=== PATIENT | female | born 1950 | race Asian ===

== ENCOUNTER 2020-09-24 09:25 | Emergency (ER) | payer MEDICARE, OTHER ==
[~2020-09-24] VITALS: Ht 152.4 cm; Wt 63.5 kg
[~2020-09-24 09:25] MED LIST: ASPI81CH PO; ATEN50; DONE5; Estradiol0.5 MG PO; Lisinopril2.5 MG; METO25ER PO; Omeprazole20 M1 PO; Prozac20 MG PO; SIMV40 PO
[2020-09-24 09:57] LABS: Source, Urine Voided
[2020-09-24] MEDS ORDERED: DULOXETINE HCL60 M1 PO (09:59)
[2020-09-24] MEDS ORDERED: LANS30EC PO (10:00)
[2020-09-24] MEDS ORDERED: ATOR40TA PO (10:00)
[2020-09-24 10:08] LABS: Appearance, Urine Hazy (Clear); Blood, Urine 5+ (Neg); Color, Urine Amber (P-Yellow); Glucose Qualitative, Urine Neg (Neg); Ketones, Urine 1+ (Neg); Leukocyte Esterase, Urine 2+ (Neg); Nitrite, Urine Pos (Neg); Protein, Urine 3+ (Neg); Specific Gravity, Urine 1.025 (1.003-1.022); Urobilinogen, Urine 2+ (Normal)
[2020-09-24 10:31] LABS: Bilirubin, Urine 1+ (Neg)
[2020-09-24 10:32] LABS: Red Blood Cells, Urine TNTC /hpf (0-2); Squamous Epithelial Cells Mod /hpf (Few)
[2020-09-24 10:33] LABS: Bacteria Many /hpf; Mucus Mod (0-Heavy)
[2020-09-24] MEDS ORDERED: CEPH500 PO (10:53)
== END 2020-09-24 11:05 | disposition home or self-care (01) ==
LOC: ER 09:25
PROVIDERS: Emergency Medicine
DX: N39.0 Urinary tract infection, site not specified (principal); Z79.82 Long term (current) use of aspirin; Z79.899 Other long term (current) drug therapy
CPT/HCPCS: 81001; 87086; 99283; A9270

== ENCOUNTER → 2021-01-30 | Outpatient (CLI) | payer MEDICARE, OTHER ==
[~2021-01-30] MED LIST changes: +ATOR40TA PO; +CEPH500 PO; +DULOXETINE HCL60 M1 PO; +LANS30EC PO
== END | disposition home or self-care (01) ==
LOC: LAB SHORT 09:00 → LAB 09:00
DX: E03.9 Hypothyroidism, unspecified (principal)
CPT/HCPCS: 84443

== ENCOUNTER 2021-11-09 12:02 | Day surgery (SDC) | payer MEDICARE, OTHER ==
[~2021-11-09] VITALS: Ht 149.9 cm; Wt 65.4 kg
== END 2021-11-09 13:55 | disposition home or self-care (01) ==
LOC: ORSCSDS 12:02
PROVIDERS: Internal Medicine Gastroenterology
PROC: 0DB58ZX Excision of Esophagus, Via Natural or Artificial Opening Endoscopic, Diagnostic (ICD-10-PCS; principal; 2021-11-09 15:30)
PROC: 0DB68ZX Excision of Stomach, Via Natural or Artificial Opening Endoscopic, Diagnostic (ICD-10-PCS; principal; 2021-11-09 15:30)
DX: R10.13 Epigastric pain (principal); K29.60 Other gastritis without bleeding; K20.90 Esophagitis, unspecified without bleeding; K80.20 Calculus of gallbladder without cholecystitis without obstruction; R73.9 Hyperglycemia, unspecified; Z79.899 Other long term (current) drug therapy; G30.8 Other Alzheimer's disease
CPT/HCPCS: 82947; 88305; 88342; J0330; J0461; J2405; J2704

== ENCOUNTER 2021-11-11 11:34 | Inpatient (IN) | payer MEDICARE, OTHER ==
[~2021-11-11] VITALS: Ht 149.9 cm; Wt 63.1 kg
[2021-11-11 12:31] LABS: BASOPHILS ABSOLUTE AUTO 0.06 K/mm3 (0.00-0.23); BASOPHILS PERCENT AUTO 0 % (0-2); EOSINOPHILS ABSOLUTE AUTO 0.03 K/mm3 (0.00-0.68); EOSINOPHILS PERCENT AUTO 0 % (0-6); Hematocrit 30.8 % (33.0-51.0); Hemoglobin 9.8 g/dL (11.5-16.0); IMMATURE GRAN ABSOLUTE AUTO 0.14 K/mm3 (0.00-0.10); IMMATURE GRAN PERCENT AUTO 1 % (0-1); LYMPHOCYTES ABSOLUTE AUTO 2.79 K/mm3 (0.84-5.20); LYMPHOCYTES PERCENT AUTO 15 % (21-46); MONOCYTES ABSOLUTE AUTO 0.81 K/mm3 (0.16-1.47); MONOCYTES PERCENT AUTO 4 % (4-13); Mean Corpuscular HGB 29.8 pg (26.0-34.0); Mean Corpuscular HGB Conc 31.8 g/dL (31.5-36.5); Mean Corpuscular Volume 94 fL (80-100); Mean Platelet Volume 11.4 fL (9.1-12.4); NEUTROPHILS ABSOLUTE AUTO 15.08 K/mm3 (1.96-9.15); NEUTROPHILS PERCENT AUTO 80 % (41-73); Platelet Count 262 K/mm3 (150-400); RDW Coefficient Variation 13.2 % (11.7-14.2); RDW Standard Deviation 45.1 fL (35.1-46.3); Red Blood Cell Count 3.29 M/mm3 (3.80-5.20); White Blood Cell Count 18.91 K/mm3 (4.00-11.30)
[2021-11-11 12:45] LABS: Albumin, Blood 3.2 g/dL (3.4-5.0); Albumin/Globulin Ratio 0.9 (0.8-1.8); Bilirubin, Total 0.3 mg/dL (0.1-1.0); Creatinine, Blood 0.53 mg/dL (0.40-1.00); Globulin, Blood 3.5 g/dL (2.2-4.0); Potassium, Blood 4.1 mmol/L (3.5-5.5); Total Protein, Blood 6.7 g/dL (6.4-8.2)
--- NOTE | 2021-11-11 16:26 | NUR ---
11/11/21 1626 Anne Marie Ash History, Chart, Medications and Allergies reviewed before start of procedure. See Anesthesia record FOR DETAILS. Bite Block Placed PRIOR TO START OF PROCEDURE. MONITOR INTACT WITH CONTINUOUS PULSE OXIMETRY AND INTERMITTENT BP. O2 VIA POM AT 15L INTACT THROUGHOUT SEDATION/PROCEDURE.
--- NOTE | 2021-11-11 16:50 | NUR ---
RECEIVED PATIENT REPORT FROM ED RN, PT CURRENTLY IN DAY SURGERY
--- NOTE | 2021-11-11 16:50 | NUR ---
RECEIVED REPORT FROM DAY SURGERY ABOUT PT'S CONDITION. PT ON THEIR WAY TO PCU 19
--- NOTE | 2021-11-11 16:55 | NUR ---
PT TO BATHROOM, SBA. DR SOLIS HERE TO SPEAK WITH PT. PT TO BE ADMITTED TO [facility].
--- NOTE | 2021-11-11 19:32 | NUR ---
SHIFT SUMMARY PT WAS ADMITTED TO PCU LATE INTO MY SHIFT, SO MY TIME WITH THE PT HAS BEEN LIMITED. PT IS A/0x3 AND IS COOPERATIVE WITH STAFF. PT'S HR HAS BEEN TACHY AND BP'S STABLE IN THE 130-150'S. PT MAINTAINS SPO2 >95 IN RA WITH NO SOB OR DYSPNEA NOTED. LS CLEAR. NO OVERT CHANGE IN MENTAL STATUS NOTED T/O MY SHIFT. PT ABLE TO TRANSFER TO [facility] WITH S[facility]. NO N/V/D T/O MY SHIFT. PT'S SPOUSE WILL BRING IN MED REC TO PCU 11/12/21. NO TARRY BM'S OR COFFEE GROUND EMESIS T/O MY SHIFT. VALENCIA, VSS
[2021-11-12 06:22] LABS: BASOPHILS ABSOLUTE AUTO 0.03 K/mm3 (0.00-0.23); BASOPHILS PERCENT AUTO 0 % (0-2); EOSINOPHILS ABSOLUTE AUTO 0.03 K/mm3 (0.00-0.68); EOSINOPHILS PERCENT AUTO 0 % (0-6); Hematocrit 21.5 % (33.0-51.0); Hemoglobin 7.2 g/dL (11.5-16.0); IMMATURE GRAN ABSOLUTE AUTO 0.04 K/mm3 (0.00-0.10); IMMATURE GRAN PERCENT AUTO 0 % (0-1); LYMPHOCYTES ABSOLUTE AUTO 3.19 K/mm3 (0.84-5.20); LYMPHOCYTES PERCENT AUTO 25 % (21-46); MONOCYTES ABSOLUTE AUTO 0.63 K/mm3 (0.16-1.47); MONOCYTES PERCENT AUTO 5 % (4-13); Mean Corpuscular HGB 30.3 pg (26.0-34.0); Mean Corpuscular HGB Conc 33.5 g/dL (31.5-36.5); Mean Corpuscular Volume 90 fL (80-100); Mean Platelet Volume 10.9 fL (9.1-12.4); NEUTROPHILS ABSOLUTE AUTO 8.89 K/mm3 (1.96-9.15); NEUTROPHILS PERCENT AUTO 70 % (41-73); Platelet Count 188 K/mm3 (150-400); RDW Coefficient Variation 13.3 % (11.7-14.2); RDW Standard Deviation 43.3 fL (35.1-46.3); Red Blood Cell Count 2.38 M/mm3 (3.80-5.20); White Blood Cell Count 12.81 K/mm3 (4.00-11.30)
--- NOTE | 2021-11-12 06:25 | NUR ---
SHIFT SUMMARY NO ACUTE CHANGES THIS SHIFT. PT ALERT, PLEASANT, FOLLOWS DIRECTIONS, THOUGH CAN BE OCCASIONALLY FORGETFUL. SP02>90% ON RA. TELEMTRY SHOWS SINUS TACH MOSTLY HR 100'S THOUGH ELEVATES TO 130'S WHEN AMBULATING. C/O OF EPIGASTRIC "MILD BURNING". UP TO BATHROOM TO VOID. NO BM BUT A LOT OF GAS. DENIES N/V. FLUIDS INFUSED PER EMAR. IMAGING IN ROOM THIS SHIFT TO GIVE ORAL CONTRACT FOR MORNING CT. PT STARTED DRINKING CONTRAST AT 0430, ADHEREING TO TIME INSTRUCTIONS ON BOTTLE. CALL LIGHT IN REACH.
[2021-11-12 06:30] LABS: Bun/Creatinine Ratio 34.5 (12.0-20.0); Calcium, Blood 8.2 mg/dL (8.5-10.1); Creatinine, Blood 0.58 mg/dL (0.40-1.00); Potassium, Blood 3.4 mmol/L (3.5-5.5)
--- NOTE | 2021-11-12 12:26 | NUR ---
PUREWWICK REMOVED PER PATIENT REQUEST AND NEW ATTENDS PLACED
[2021-11-12] MEDS ORDERED: EUTHYROX50 MCG PO ×2 (12:34→12:38)
[2021-11-12] MEDS ORDERED: METO25ER PO (12:39)
--- NOTE | 2021-11-12 17:13 | NUR ---
PT REPORTS SOME MILD EPIGASTRIC BURNING AT TIMES. PT REPORTS SEVERAL SMALL BLACK STOOLS. I HAVE BEEN UNABLE TO VISUALIZE PT HAS REMOVED HAT AND FLUSHED TOILET- FORGETS REQUEST TO SAVE STOOL. BED ALARM IN PLACE, PT FORGETFUL, DOES NOT USE CALL LIGHT AND ATTEMPTS TO TAKE SELF TO BR. PT REPEATEDLY TELLS ME SHE HAS DEMENTIA. PT DENIES DIZZINESS OR ANY HEADACHE OR HEAD PAIN. MELISSA FULL LIQUID WITHOUT NAUSEA. PT IS HOPING TO DISCHARGE IN AM
--- NOTE | 2021-11-13 06:01 | NUR ---
SHIFT SUMMARY Assumed care of pt at 1900. "Nit" is A/O to self and president only. Dementia at baseline. Forgetful and attempts to get oob, but cooperative with care. No c/o pain, CP/pressure. SBA to bathroom d/t previous fall at home. ST on tele 110's, strong +2 pulses t/o. Mild abdominal distention with hyperactive bowel tones. Small amounts of soft tarry stool noted this shift. Denies N/V. During dayshift and nightshift IV access was attempted multiple times along with attempting powerglide access but was unsuccessful, LR was not able to continue to be infusing. Will report to kalani RN.
--- NOTE | 2021-11-13 12:42 | NUR ---
DISCHARGE NOTE: PT CLEARED FOR DISCHARGE BY DR SOSA. PT AND SPOUSE HAVE BEEN PROVIDED WITH DC PAPERWORK AND INSTRUCTIONS, ALL QUESTIONS ANSWERED. NO IV ACCESS TO DC. PT ESCORTED FROM UNIT VIA W/C W/OUT INCIDENT.
== END 2021-11-13 12:28 | disposition home or self-care (01) | DRG 920 ==
LOC: ER 11:34 → PCU 11:35
PROVIDERS: Physician Assistant; ADMIT Family Medicine
PROC: 0W3P8ZZ Control Bleeding in Gastrointestinal Tract, Via Natural or Artificial Opening Endoscopic (ICD-10-PCS; principal; 2021-11-12)
PROC: 30233N1 Transfusion of Nonautologous Red Blood Cells into Peripheral Vein, Percutaneous Approach (ICD-10-PCS; 2021-11-12)
DX: K91.840 Postprocedural hemorrhage of a digestive system organ or structure following a digestive system procedure (principal); D62 Acute posthemorrhagic anemia; K92.2 Gastrointestinal hemorrhage, unspecified; E11.9 Type 2 diabetes mellitus without complications; D72.829 Elevated white blood cell count, unspecified; I10 Essential (primary) hypertension; E78.5 Hyperlipidemia, unspecified; R55 Syncope and collapse; F41.9 Anxiety disorder, unspecified; E03.9 Hypothyroidism, unspecified; Z90.49 Acquired absence of other specified parts of digestive tract; Z90.710 Acquired absence of both cervix and uterus; Z88.1 Allergy status to other antibiotic agents; Z87.891 Personal history of nicotine dependence; Z79.82 Long term (current) use of aspirin; E78.00 Pure hypercholesterolemia, unspecified
CPT/HCPCS: 36415; 71046; 71260; 74160; 80048; 80053; 82947; 83036; 84443; 84484; 85014; 85025; 86850; 86900; 86901; 86923; 88305; 88342; 93005; 93010; 96374; 96376; 99285-25; A9270; C9113; G0378; J0330; J0461; J1815; J2001; J2405; J2704; J7030; J7050; J7120; P9016; Q9967

== ENCOUNTER → 2022-10-01 | Outpatient (CLI) | payer MEDICARE ==
[~2022-10-01] MED LIST changes: +EUTHYROX50 MCG PO
== END | disposition home or self-care (01) ==
LOC: LAB SHORT 16:55 → LAB 16:55
DX: E03.9 Hypothyroidism, unspecified (principal)
CPT/HCPCS: 84443